=== PATIENT | female | born 1990 | race Caucasian/White ===

== ENCOUNTER 2020-07-16 16:14 | Emergency (ER) | payer BC, SELFPAY ==
--- NOTE | ~2020-07-16 | XR_ITS ---
EXAMINATION: XR ankle RT min 3V DATE: 07/16/2020 16:34 INDICATION: Right ankle pain and swelling. TECHNIQUE: 4 views of right ankle were obtained. COMPARISON: None. FINDINGS: There is a fragment of ossification distal to lateral malleolus. The talar dome is normal. There is ankle soft tissue swelling. IMPRESSION: 1. Fragment of ossification distal to lateral malleolus that may be an acute avulsion fracture or a f inding from old injury. Reviewed, dictated and finalized at location A. IMPRESSION: 1. Fragment of ossification distal to lateral malleolus that may be an acute av ulsion fracture or a finding from old injury.
[2020-07-16 16:20] VITALS: BP 135/75; PULSE 100; RESP 16; TEMP 36.9; O2SAT 99
--- NOTE | 2020-07-16 16:51 | ED.LOWEXIN ---
HPI - Extremity Injury (Lower) General Chief Complaint: Extremity Injury, Lower Stated Complaint: injured r ankle Source: patient and RN notes reviewed Mode of arrival: wheelchair Limitations: no limitations History of Present Illness HPI Narrative: 29 year old female who presents to [facility] care via wheelchair with complaints of injury this morning at her mothers home. Patient states that she had flat shoes on and it was raining out and she was running up steps and she slipped twisting her right ankle in the process, Patient states that she has had previous injury to this same ankle. Patient has palpable pain to lateral malleolus region with swelling present, no obvious deformity,strong pedal and posterior tibial pulses to right foot. Patient denies any tingling or numbness to her right leg or foot. Patient states that she has kept right foot elevated and has applied ice to her ankle prior to arrival. MD complaint: ankle injury Onset (ago): hour(s) Injury: Right: ankle (right lateral ankle) Type of Injury: eversion Place: home Severity: severe Severity scale (1-10): 10 Relieving factors: nothing Exacerbating factors: weight bearing and movement Context: fall Associated symptoms: swelling and unable to bear weight Other symptoms: none Treatments prior to arrival: cold therapy Related Data Home Medications Medication Instructions Recorded Confirmed alprazolam 07/16/20 bupropion HCl mg PO 07/16/20 escitalopram oxalate mg 07/16/20 Allergies Allergy/AdvReac Type Severity Reaction Status Date / Time CEPHALEXIN MONOHYDRATE Allergy Unknown rash Uncoded 08/17/17 09:53 Review of Systems Review of Systems: Narrative: CONSTITUTIONAL: Denies fever, chills, or sweats. EYES: Denies visual changes, redness, or discharge. ENT: Denies rhinorrhea, congestion, sore throat, or otalgia. CARDIOVASCULAR: Denies chest pain, palpitations, or edema. RESPIRATORY: Denies cough or dyspnea. GASTROINTESTINAL: Denies abdominal pain, nausea, vomiting, or diarrhea. GENITOURINARY: Denies dysuria or hematuria. SKIN: Denies rash or itching. MUSCULOSKELETAL: Denies back pain, positive right lateral ankle joint pain and swelling or myalgia. NEUROLOGIC: Denies headache, numbness, or weakness. PSYCHIATRIC:Positive for history of anxiety or depression. All systems reviewed & are unremarkable except as noted in HPI and below [facility] Past Medical History Medical History (Updated 07/20/20 @ 10:48 by Maddie Santiago NP) Anxiety UTI (urinary tract infection) Surgical History Surgical History (Updated 07/20/20 @ 10:33 by Maddie Santiago NP) Hx of cholecystectomy Family History Family History Other Cerebrovascular accident Diabetes mellitus Family history of arthritis Family history of gout Hypertension Social History Social History (Updated 07/20/20 @ 10:36 by Maddie Santiago NP) Smoking status: Never smoker Alcohol intake: current Substance use: never Living arrangements: with family Gender identity (if verbalized by the patient): Female Comments At time of signature, agree with nursing past medical, surgical, social and family history. There is no relevant family history pertinent to the presenting complaint Exam Narrative: Exam Narrative: GENERAL: Well-appearing, well-nourished, and in some acute distress. HEAD: Normocephalic, atraumatic. EYES: PERRLA and EOMI. ENT: Nares clear, no rhinorrhea or epistaxis. Mucous membranes moist.TM's normal with good light reflex, NECK: Supple. no lymphadenopathy CHEST: Clear to auscultation. No respiratory distress.SAO2 99% on room air HEART: Regular rate and rhythm. No murmur heard. Normal peripheral pulses. ABDOMEN: Soft, nontender, nondistended, normal active bowel sounds. EXTREMITIES: Normal range of motion. No edema. with exception to right lateral ankle which has pain especially with any movement, of ankle, is unable
== END 2020-07-16 17:25 | disposition home or self-care (01) ==
PROVIDERS: Emergency Provider Registered Nurse
DX: S82.61XA Displaced fracture of lateral malleolus of right fibula, initial encounter for closed fracture (principal); W19.XXXA Unspecified fall, initial encounter
CPT/HCPCS: 73610; 99213; G0463

== ENCOUNTER 2022-10-23 20:21 | Emergency (ER) | payer OTHER, MEDICAID, SELFPAY ==
[2022-10-23] VITALS (13 sets, daily range): BP systolic 110–115; BP diastolic 74–76; PULSE 96–110; RESP 14–33; TEMP 35.6; O2SAT 96–100
--- NOTE | ~2022-10-23 | CT_ITS ---
EXAMINATION: CT brain wo con DATE: 10/23/2022 21:25 INDICATION: Seizure/GROSSMAN . TECHNIQUE: Computed tomography (CT) of the head was performed without intravenous contrast. The mA wa s adjusted according to patient size. Iterative reconstruction technique was employed. The dose-lengt h product was 605.33 mGy-cm. COMPARISON: None. FINDINGS: No acute intracranial hemorrhage or extra-axial fluid collection. No hydrocephalus, mass, or herniation. No acute ischemic infarct. Unremarkable dural venous sinus attenuation. No acute osseous abnormality. The aerated spaces are clear. IMPRESSION: No acute intracranial process. Reviewed, dictated and finalized at location K.
[2022-10-23] MEDS: ONDANSETRON INJ 4 MG/2 ML VIAL IV PUSH (20:31)
--- NOTE | 2022-10-23 20:54 | PC.NURSE ---
ERP made aware that pts family is at bedside at this time.
[2022-10-23] MEDS: ACETAMINOPHEN 500 MG TABLET 1000 MG PO (21:35)
[2022-10-23] MEDS: SODIUM CHLORIDE 0.9% IV 2,000 ML 999 ML IV CONT (21:36)
[2022-10-23 21:40] LABS: Basophils Absolute Auto 0.1 K/mm3 (0.0-0.1); Basophils Percent Auto 0.4 % (0.2-1.2); Eosinophils Absolute Auto 0.1 K/mm3 (0-0.3); Eosinophils Percent Auto 0.7 % (0-4.4); Hematocrit 45.8 % (37.0-47.0); Hemoglobin 15.1 g/dL (12.0-15.0); Immature Granulocyte Absolute 0.05 K/mm3 (0.00-0.031); Immature Granulocyte Percent A 0.4 % (0-0.5); Lymphocytes Absolute Auto 1.59 K/mm3 (0.9-3.2); Lymphocytes Percent Auto 11.9 % (18.3-44.2); Mean Corpuscular Hemoglobin 30.1 pg (26-34); Mean Corpuscular Volume 91.4 fl (80-100); Mean Platelet Volume 9.7 fl (7.4-10.4); Monocytes Absolute Auto 0.8 K/mm3 (0.1-0.6); Monocytes Percent Auto 6.2 % (2.6-8.5); Neutrophils Absolute Auto 10.7 K/mm3 (1.3-6.7); Neutrophils Percent Auto 80.4 % (45.5-73.1); Platelet Count Result 406 k/mm3 (150-375); Red Blood Count 5.01 M/mm3 (4.2-5.4); Red Cell Distribution Width 12.8 % (11.5-14.5); White Blood Count 13.3 K/mm3 (4.5-10.0)
--- NOTE | 2022-10-23 21:49 | ED.GENADULT ---
HPI - General Adult General Chief complaint: Seizure Stated complaint: seizure Time Seen by Provider: 10/23/22 20:35 History of Present Illness HPI narrative: This is a 32-year-old female with history of seizure disorder presenting ED after a suspected seizure. The patient was sleeping and does not recall any of the events leading up to it. The patient's brother said that he heard a strange noises coming from her room and when he went in there he said that she was shaking and breathing strangely. It then resolved after approximately 5 minutes. At that time she was confused but then regained consciousness EN route to the hospital was now paced back to her baseline mental status. She did bite her tongue. No urinary incontinence. Patient has had several seizures in the past and has been on a an antiepileptic but says she stopped taking it because she was not having any more seizures. She has not seen her neurologist in many years. the patient's only complaint at this time is a frontal headache that she describes as pounding and getting better. She denies numbness tingling weakness to any extremity, fever chillsneck pain or head trauma. Related Data Home Medications Medication Instructions Recorded Confirmed alprazolam 1 mg tablet 07/16/20 bupropion HCl 150 mg 24 hr tablet, mg PO 07/16/20 extended release escitalopram oxalate 20 mg tablet mg 07/16/20 Allergies Allergy/AdvReac Type Severity Reaction Status Date / Time CEPHALEXIN MONOHYDRATE Allergy Unknown rash Uncoded 08/17/17 09:53 PMFSH Past Medical History Medical History Anxiety UTI (urinary tract infection) Surgical History Surgical History Hx of cholecystectomy Family History Family History Other Cerebrovascular accident Diabetes mellitus Family history of arthritis Family history of gout Hypertension Social History Social History Smoking status: Never smoker Alcohol intake: current Substance use: never Living arrangements: with family Gender identity (if verbalized by the patient): Female Exam Narrative: APPEARANCE: No apparent distress. Head: atraumatic. EYES: EOMI, MANPREET NOSE: Atraumatic NECK: Trachea midline, neck is soft and supple RESPIRATORY: No increased rate of breathing , clear to auscultation CARDIOVASCULAR: RRR, no peripheral edema ABDOMINAL: Non-distended soft nontender no guarding rebound MUSCULOSKELETAl: No obvious deformities NEURO: Alert. Cranial nerves 2-12 grossly intact. Sensation light touch, motor function cerebellar function intact for 4 extremities. Gait exam was normal. SKIN:: Warm, dry. Normal color PSYCHIATRIC: Normal affect Course Vital Signs Vital signs: Vital Signs Pulse Rate 102 H 10/23/22 20:19 Respiratory Rate 19 10/23/22 20:19 Blood Pressure 110/76 10/23/22 20:19 Pulse Oximetry 100 10/23/22 20:19 Oxygen Delivery Room Air 10/23/22 20:19 Temperature 96.1 F L 10/23/22 20:37 Pulse Rate 105 H 10/23/22 23:00 Respiratory Rate 20 10/23/22 23:00 Blood Pressure 115/76 10/23/22 22:02 Pulse Oximetry 98 10/23/22 23:00 Oxygen Delivery Room Air 10/23/22 20:50 Medical Decision Making MDM Narrative Medical decision making narrative: -Presentation: 32-year-old with known diagnosis of seizures presenting after seizure-like activity. Patient is also complaining of a headache. 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
[2022-10-23 22:07] LABS: Alanine Aminotransferase 29 U/L (6-35); Albumin Level 4.6 g/dL (3.5-5.1); Alkaline Phosphatase 91 U/L (38-126); Anion Gap 11 mmol/L (8-16); Aspartate Amino Transferase 36 U/L (14-36); Bilirubin,Total 1.1 mg/dL (0.2-1.3); Blood Urea Nitrogen 12 mg/dL (7-17); Calcium 8.9 mg/dL (8.4-10.2); Carbon Dioxide 15 mmol/L (22-30); Chloride 105 mmol/L (98-107); Estimated CRCL calculation 141 ml/min; Estimated Glomerular Filt Rate > 60; Glucose 130 mg/dL (65-110); Magnesium 2.3 mg/dL (1.6-2.3); Potassium 3.8 mmol/L (3.4-5.0); Sodium 131 mmol/L (137-145)
[2022-10-23 22:16] LABS: Influenza A QL RT-PCR Negative (Negative); Influenza B QL RT-PCR Negative (Negative); RSV RNA, RT-PCR Negative (Negative); SARS-CoV-2 RNA PCR Negative (Negative)
[2022-10-23] MEDS: diphenhydrAMINE HCl INJ 50 MG/ML VIAL 25 MG IV PUSH (22:53)
[2022-10-23] MEDS: PROCHLORPERAZINE EDISYLATE 10 MG/2 ML VIAL IV PUSH (22:55)
[2022-10-23] MEDS: KETOROLAC 15 MG/ML VIAL (*BKC) IV PUSH (22:56)
[2022-10-23 23:00] LABS: Glucose Point of Care 86 mg/dl (65-105)
--- NOTE | 2022-10-23 23:18 | PC.NURSE ---
This RN assumed care of patient. This RN took patient report from KATIE Kinsey.
== END 2022-10-23 23:39 | disposition home or self-care (01) ==
PROVIDERS: Emergency Provider Emergency Medicine; PCP Physician Assistant
DX: G40.909 Epilepsy, unspecified, not intractable, without status epilepticus (principal); F41.9 Anxiety disorder, unspecified; Z20.822 Contact with and (suspected) exposure to COVID-19; Z90.49 Acquired absence of other specified parts of digestive tract
CPT/HCPCS: 36415; 70450; 80053; 82948; 83735; 85025; 87637; 96361; 96365; 96375; 99284; A9270; J0780; J1200; J1885; J1953; J2405; J7030

== ENCOUNTER 2022-12-01 10:14 | Emergency (ER) | payer OTHER, MEDICAID, SELFPAY ==
[2022-12-01 10:23] VITALS: BP 131/79; PULSE 72; RESP 16; TEMP 36.3; O2SAT 97
--- NOTE | 2022-12-01 10:31 | ED.URI ---
HPI - URI/Sore Throat General Chief Complaint: Upper Respiratory Infection Stated Complaint: Cough,Sore Throat Time Seen by Provider: 12/01/22 10:24 Source: patient and RN notes reviewed Mode of arrival: ambulatory Limitations: no limitations History of Present Illness HPI Narrative: 32-year-old female presented for complaint of sore throat, cough, headache, sinus pressure/congestion, n/v/d. Onset 3 days. Endorses feeling 'winded' when talking a lot or with exertion. Denies sob at rest, wheezing, fever/chills. Taking Delsym for symptoms, last dose was last night. Denies sick contacts. Rates throat pain 10/22. MD elicited complaint: cough Related Data Home Medications Medication Instructions Recorded Confirmed alprazolam 1 mg tablet 1 mg PO PRN PRN Anxiety 07/16/20 12/01/22 escitalopram oxalate 20 mg tablet 20 mg PO DAILY 07/16/20 12/01/22 valacyclovir 500 mg tablet 500 mg PO PRN PRN Cold Sores 12/01/22 12/01/22 Allergies Allergy/AdvReac Type Severity Reaction Status Date / Time CEPHALEXIN MONOHYDRATE AdvReac Mild rash Uncoded 12/01/22 10:16 Review of Systems Review of Systems: CONSTITUTIONAL: Endorses malaise, denies chills, sweats, fever EYES: Denies visual changes, redness, or discharge ENT: Reports rhinorrhea, congestion, sore throat denies sinus pain, otalgia CARDIOVASCULAR: Denies chest pain, palpitations, edema RESPIRATORY: Reports cough, post nasal drainage. Denies dyspnea GASTROINTESTINAL: Denies abdominal pain,reports nausea, vomiting, diarrhea SKIN: Denies rash or itching MUSCULOSKELETAL: denies myalgia NEUROLOGIC: Reports headache PMFSH Past Medical History Medical History Anxiety UTI (urinary tract infection) Surgical History Surgical History Hx of cholecystectomy Family History Family History Other Cerebrovascular accident Diabetes mellitus Family history of arthritis Family history of gout Hypertension Social History Social History Smoking status: Never smoker Alcohol intake: current Substance use: never Living arrangements: with family Gender identity (if verbalized by the patient): Female Exam Narrative: GENERAL: Ill-appearing, nontoxic no acute distress. EYES: conjunctivae clear ENT: Mucous membranes moist. Nasal congestion. TMs erythematous with dull light reflex bilaterally; no tragal tenderness. Hoarse voice. Oropharynx mildly erythematous without lesions or exudate, no drooling, no trismus, uvula midline. No tripod positioning, muffled voice, soft palate or pharyngeal wall bulging NECK: Supple. No lymphadenopathy CHEST: Clear to auscultation, breath sounds equal. 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 No wheezing, rhonchi, rales, or stridor. No respiratory distress, speaks in full sentences but appears to become fatigued with talking. HEART: Regular rate and rhythm. No murmur heard. SKIN: Warm, dry, no rash. NEURO: Alert and oriented x3. PSYCH: Normal mood and affect Course Course Emergency Course: Patient is aware of diagnosis, understands and agrees to treatment plan. Anticipatory guidance given. Patient agrees to follow-up as directed and is aware of reasons to seek care at the emergency department. Portions of this record may have been created with voice recognition software Level of Care: Express Care Visit Vital Signs Vital signs: Vital Signs Temperature 97.4 F L 12/01/22 10:23 Pulse Rate 72 12/01/22 10:23 Respiratory Rate 16 12/01/22 10:23 Blood Pressure 131/79 12/01/22 10:23 Pulse Oximetry 97 12/01/22 10:23 Oxygen Delivery Room Air 12/01/22 10:23 Temperature 97.4 F L 12/01/22 10:23 Pulse Rate 72 12/01/22 10:23 Respiratory Rate 16 12/01/22 10:23 Blood Pressure 131/79 12/01/22 10:23 Pu
== END 2022-12-01 11:01 | disposition home or self-care (01) ==
PROVIDERS: Emergency Provider Nurse Practitioner Family; PCP Physician Assistant
DX: B34.9 Viral infection, unspecified (principal); Z20.822 Contact with and (suspected) exposure to COVID-19; F41.9 Anxiety disorder, unspecified
CPT/HCPCS: 87081; 87426; 87804; 87880; 99213; C9803; G0463

== ENCOUNTER 2023-06-25 13:53 | Emergency (ER) | payer OTHER, SELFPAY ==
--- NOTE | ~2023-06-25 | XR_ITS ---
EXAMINATION: XR chest 2V DATE: 06/25/2023 14:40 INDICATION: Shortness of breath. Cough. TECHNIQUE: Frontal and lateral views of the chest were obtained. COMPARISON: Chest single view 08/17/2017 FINDINGS: There is no pneumonia, pleural effusion, or pneumothorax. The heart size is normal. There a re surgical clips in the abdomen. IMPRESSION: 1. No acute cardiopulmonary disease. Reviewed, dictated and finalized at location A.
--- NOTE | 2023-06-25 14:04 | ED.URI ---
HPI - URI/Sore Throat General Chief Complaint: Upper Respiratory Infection Stated Complaint: sorethroat Time Seen by Provider: 06/25/23 14:04 Source: patient Mode of arrival: ambulatory Limitations: no limitations History of Present Illness HPI Narrative: Patient is a 32-year-old female who presents with runny nose, sore throat and cough for 3 days. Patient also reports mild shortness of breath on exertion. Patient still able to speak in complete sentences. Denies any fever, chills, nausea, vomiting, diarrhea. Has not taken anything for symptoms. Patient reports similar symptoms last fall and was given albuterol, Medrol Dosepak and Tessalon Perles. Patient reports that really helped her symptoms. Related Data Home Medications Medication Instructions Recorded Confirmed alprazolam 1 mg tablet 1 mg PO Anxiety 07/16/20 12/01/22 escitalopram oxalate 20 mg tablet 20 mg PO DAILY 07/16/20 12/01/22 valacyclovir 500 mg tablet 500 mg PO PRN PRN Cold Sores 12/01/22 12/01/22 Allergies Allergy/AdvReac Type Severity Reaction Status Date / Time cephalexin [From Keflex] Allergy Rash Verified 06/25/23 14:15 Review of Systems Review of Systems: All systems reviewed & are unremarkable except as noted in HPI and below Constitutional: Constitutional: Denies body ache(s), Denies chills, Denies fatigue, Denies fever(s), Denies headache(s), Denies malaise and Denies weakness Eyes: Eyes: Denies blurry vision, Denies itchy eyes and Denies loss of vision ENT: Denies otalgia, Denies headache(s), Reports nasal congestion, Denies sinus pain and Reports sore throat Cardiovascular: Cardiovascular: Denies chest pain, Denies irregular heart rhythm and Reports dyspnea Respiratory: Respiratory: Reports cough and Denies dyspnea Gastrointestinal: Gastrointestinal: Denies abdominal pain, Denies diarrhea, Denies nausea and Denies vomiting Musculoskeletal: Musculoskeletal: Denies back pain, Denies myalgias and Denies arthralgias Integumentary/Breasts: Skin/Breast: Denies pruritus and Denies rash Neurologic: Denies headache(s), Denies loss of vision and Denies weakness Psychiatric: Psychiatric: Reports no additional psychiatric complaints Endocrine: Endocrine: Denies fatigue Allergic/Immunologic: Allergic/Immunologic: Denies itchy eyes PMFSH Past Medical History Medical History Anxiety UTI (urinary tract infection) Surgical History Surgical History Hx of cholecystectomy Family History Family History Other Cerebrovascular accident Diabetes mellitus Family history of arthritis Family history of gout Hypertension Social History Social History Smoking status: Never smoker Alcohol intake: current Substance use: never Living arrangements: with family Gender identity (if verbalized by the patient): Female Comments At time of signature, agree with nursing past medical, surgical, social and family history. There is no relevant family history pertinent to the presenting complaint. Exam Const: General: cooperative, healthy appearing, comfortable, no acute distress and well nourished Nutritional Appearance: well nourished Orientation/consciousness: patient oriented x3 Limitations: no limitations HENMT: Head: normal to inspection, normocephalic and atraumatic Ears: hearing grossly normal bilaterally, external ears normal, TM's normal bilaterally, EAC's normal and no periauricular adenopathy Face/Nose/Sinus: Normal external nose present, Abnormal mucous membranes and turbinates present erythematous bilateral and diffuse, normal facial exam, sinuses nontender and face symmetric Face and sinus: normal facial exam, sinuses nontender and face symmetric Mouth: Yes Normal oral and palatal mucosa present, Yes lip
[2023-06-25 14:13] VITALS: BP 138/85; PULSE 101; RESP 18; TEMP 36.4; O2SAT 100
[2023-06-25 14:16] VITALS: BP 138/85; PULSE 101; RESP 18; TEMP 36.4; O2SAT 100
== END 2023-06-25 15:01 | disposition home or self-care (01) ==
PROVIDERS: Emergency Provider Nurse Practitioner Family; PCP Physician Assistant
DX: J40 Bronchitis, not specified as acute or chronic (principal); F41.9 Anxiety disorder, unspecified
CPT/HCPCS: 71046; 81025; 87081; 87880; 99213; G0463

== ENCOUNTER 2023-07-26 08:45 | Emergency (ER) | payer OTHER, SELFPAY ==
[2023-07-26 08:56] VITALS: BP 145/84; PULSE 101; RESP 20; TEMP 36.6; O2SAT 98
--- NOTE | 2023-07-26 09:41 | ED.URI ---
HPI - URI/Sore Throat General Chief Complaint: Upper Respiratory Infection Stated Complaint: Cough and Shortness Of Breath Time Seen by Provider: 07/26/23 09:41 Source: patient Mode of arrival: ambulatory Limitations: no limitations History of Present Illness HPI Narrative: 32-year-old female presents with complaint of cough, chest tightness, shortness of breath with exertion for the past 2 days. Patient reports history of bronchitis. States that symptoms started last week as chest allergy symptoms when cough started became progressively worse. Afebrile. Using albuterol inhaler with no relief of chest tightness. All systems reviewed and negative except as noted above. Related Data Home Medications Medication Instructions Recorded Confirmed alprazolam 1 mg tablet 1 mg PO PRN Anxiety 07/16/20 07/26/23 escitalopram oxalate 20 mg tablet 20 mg PO DAILY 07/16/20 07/26/23 valacyclovir 500 mg tablet 500 mg PO PRN PRN Cold Sores 12/01/22 07/26/23 Allergies Allergy/AdvReac Type Severity Reaction Status Date / Time cephalexin [From Keflex] Allergy Rash Verified 07/26/23 09:12 Review of Systems Review of Systems: CONSTITUTIONAL: Denies fever, chills, or sweats. reports fatigue. EYES: Denies visual changes, redness, or discharge. ENT: reports rhinorrhea, congestion. Denies sore throat, or otalgia. CARDIOVASCULAR: Denies chest pain, palpitations, or edema. RESPIRATORY: Reports cough and dyspnea with exertion. GASTROINTESTINAL: Denies abdominal pain, nausea, vomiting, or diarrhea. GENITOURINARY: Denies dysuria or hematuria. SKIN: Denies rash or itching. MUSCULOSKELETAL: Denies back pain, joint pain, or myalgia. NEUROLOGIC: Denies headache, numbness, or weakness. PSYCHIATRIC: Denies anxiety or depression. All other systems reviewed are negative, except as documented in HPI. [facility] Past Medical History Medical History Anxiety UTI (urinary tract infection) Surgical History Surgical History Hx of cholecystectomy Family History Family History Other Cerebrovascular accident Diabetes mellitus Family history of arthritis Family history of gout Hypertension Social History Social History Smoking status: Never smoker Alcohol intake: current Substance use: never Living arrangements: with family Gender identity (if verbalized by the patient): Female Comments At time of signature, agree with nursing past medical, surgical, social and family history. There is no relevant family history pertinent to the presenting complaint. Exam Narrative: GENERAL: This is a well-nourished, well-developed patient, in no apparent distress. HEAD: normocephalic, atraumatic. EYES: PERRL. Sclera clear/white. Vision is grossly intact. EARS: External ears normal, auditory canals clear and without drainage, TMs normal without perforation. Hearing grossly intact. NOSE: External nose normal with purulent nasall drainage, moderate congestion THROAT: Mucous membranes moist, posterior pharynx clear. NECK: Neck supple, non-tender without lymphadenopathy, masses or thyromegaly. CARDIOVASCULAR: Regular rate and rhythm without murmurs, gallops, or rubs. RESPIRATORY: Tight, decreased throughout all lung [place]. Breath sounds equal bilaterally. No wheezes, rales, or rhonchi. SKIN: warm, Dry, intact with no suspicious lesions or rash, good texture and turgor. NEURO: awake, alert, and oriented to person, place and time. There were no obvious focal neurologic abnormalities. EXTREMITIES: No joint tenderness, effusion, or edema noted. Course Course Level of Care: Express Care Visit Reevaluation(s) Reevaluation #1: lungs clear to auscultation after DuoNeb. Vital Signs Vital signs: Vital Signs
[2023-07-26] MEDS: IPRATROPIUM 0.5 MG/ALBUTEROL SULFATE 2.5 MG AMPUL.NEB 3 ML INHALATION (09:56)
[2023-07-26] MEDS: predniSONE 20 MG TABLET 40 MG PO (09:56)
[2023-07-26 09:58] VITALS: PULSE 100; RESP 20; O2SAT 98
[2023-07-26 10:25] VITALS: PULSE 110; RESP 20; O2SAT 99
== END 2023-07-26 10:32 | disposition home or self-care (01) ==
PROVIDERS: Emergency Provider Nurse Practitioner Family; PCP Physician Assistant
DX: J20.9 Acute bronchitis, unspecified (principal); J01.90 Acute sinusitis, unspecified; F41.9 Anxiety disorder, unspecified
CPT/HCPCS: 94640; 99213; G0463; J7512